=== PATIENT | male | born 1975 | race Caucasian/White ===

== ENCOUNTER 2018-04-25 07:26 | Day surgery (SDC) | payer MEDICAID ==
[~2018-04-25] VITALS: Ht 180.3 cm; Wt 114.0 kg
[~2018-04-25 07:26] MED LIST: ALLO300T PO; ALPR0.5T6 PO; OMEP-110 PO; SERT100T5 PO; ZOLP-413 PO
[2018-04-25 07:55] VITALS: BP 129/79
[2018-04-25] MEDS ORDERED: LACTATED RINGERS 1,000 ML IV SCH (08:06)
[2018-04-25] MEDS ORDERED: OXYC5TAB3 PO (08:09)
[2018-04-25] MEDS ORDERED: BUPIVACAINE/PF-EPI 0.5% 1:200K ONE (09:07)
[2018-04-25] MEDS ORDERED: FENTANYL PF 100 MCG/2ML ONE (09:54)
[2018-04-25] MEDS ORDERED: MIDAZOLAM 1 MG/ML, 2ML ONE (09:54)
[2018-04-25] MEDS ORDERED: ACETAMINOPHEN 325 MG TABLET PO PRN (10:30)
[2018-04-25] MEDS ORDERED: hydrALAzine 20 MG/ML, 1ML IV PRN (10:30)
[2018-04-25] MEDS ORDERED: HYDROmorphone 1 MG/ML, 1ML IV PRN (10:30)
[2018-04-25] MEDS ORDERED: OXYcodone 5 MG/5 ML ORAL.SOL UDC PO PRN (10:30)
[2018-04-25] MEDS ORDERED: LORazepam 2 MG/ML, 1ML IVPush PRN (10:30)
[2018-04-25] MEDS ORDERED: KETOROLAC 30 MG/1 ML IV PRN (10:30)
[2018-04-25] MEDS ORDERED: ALBUTEROL SULFATE 2.5 MG/3 ML NPPB PRN (10:30)
[2018-04-25] MEDS ORDERED: LABETALOL 5MG/ML, 20ML IV PRN (10:30)
[2018-04-25] MEDS ORDERED: FENTANYL PF 100 MCG/2ML IV PRN (10:30)
[2018-04-25] MEDS ORDERED: MEPERIDINE/PF 50 MG/ML ONE (11:00)
[2018-04-25] MEDS ORDERED: PROPOFOL 10 MG/ML, 20ML ONE (15:50)
[2018-04-25] MEDS ORDERED: ONDANSETRON 2MG/ML, 2ML ONE (15:50)
[2018-04-25] MEDS ORDERED: CEFAZOLIN 1,000 MG ONE (15:50)
[2018-04-25] MEDS ORDERED: DEXAMETHASONE 4 MG/ML, 1ML ONE (15:50)
== END 2018-04-25 12:40 | disposition home or self-care (01) ==
LOC: OUT 07:26
PROVIDERS: ATTEND Orthopaedic Surgery
DX: S82.62XA Displaced fracture of lateral malleolus of left fibula, initial encounter for closed fracture (principal); X58.XXXA Exposure to other specified factors, initial encounter; Y93.89 Activity, other specified; Y92.89 Other specified places as the place of occurrence of the external cause; Y99.8 Other external cause status; Z98.890 Other specified postprocedural states; F41.9 Anxiety disorder, unspecified; F32.9 Major depressive disorder, single episode, unspecified; Z87.39 Personal history of other diseases of the musculoskeletal system and connective tissue; M10.9 Gout, unspecified; M51.36 Other intervertebral disc degeneration, lumbar region
CPT/HCPCS: 27792; 64447; 73600; 76000; C1713; J0690; J1100; J2175; J2250; J2405; J2704; J3010; J7120